=== PATIENT | female | born 1955 | race African-American/Black ===

== ENCOUNTER 2016-05-11 15:58 | Emergency (ER) | payer MEDICAID, OTHER ==
[~2016-05-11] VITALS: Ht 162.6 cm; Wt 63.5 kg
[~2016-05-11 15:58] MED LIST: ASPIRIN EC81 MG ORAL; ATARAX25 MG ORAL; AZITHROMYCIN250 MG ORAL; CARAFATE1 G1 ORAL; CEPHALEXIN500 MG PO; CLOTRIMAZOLE15 GM TOPIC; ELIMITE 5% CREA60 GM TOPIC; GLYBURIDE2.5 MG PO; HYDROCODON-ACE1 EA17 PO; IBUPROFEN600 MG ORAL; IBUPROFEN600 MG PO; IBUPROFEN800 MG ORAL; LEVAQUIN750 MG ORAL; LISINOPRIL10 MG ORAL; LISINOPRIL20 MG ORAL; LISINOPRIL5 MG ORAL; LOMOTIL TABLET1 EAC1 PO; LOPRESSOR1 MG/ML PO; LORATADINE10 M2 PO; MELOXICAM7.5 MG PO; METFORMIN HCL1000 M1 ORAL; METFORMIN HCL500 M1 ORAL; METOPROLOL SUCC25 MG ORAL; MYLANTA30 M1 PO; NASONEX17 GM NASAL; NITROSTAT0.4 M2 SL; NORCO 5-325 TA1 EACH ORAL; NORCO 5-325 TA1 EACH PO; NORCO1 EA ORAL; OMEPRAZOLE20 M2 ORAL; PERCOCET 5-3251 EACH ORAL; PLAVIX75 MG ORAL; PREDNISONE20 MG ORAL; SOMA350 MG PO; TAMIFLU75 MG ORAL; TRAZODONE HCL50 MG ORAL; VICODIN 5-5001 EACH PO
[2016-05-11 16:20] VITALS: BP 168/92
[2016-05-11] MEDS ORDERED: BACTRIM DS TAB1 EAC1 ORAL (16:47)
[2016-05-11] MEDS ORDERED: IBUPROFEN600 MG ORAL (16:47)
[2016-05-11 17:08] VITALS: BP 155/88
--- NOTE | 2016-05-11 17:52 | Emergency Room Report ---
History of Present Illness General Chief Complaint: Pain Source: Patient Present Illness HPI The patient is a 61-year-old female presenting with pain of the right thigh. The patient states that this pain began one month prior and is described as a 10 out of 10 dull ache. Pain is worse with sitting down. The patient denies any known injury. The patient denies radiating pain. Patient denies any other symptoms including fever, chills, nausea, vomiting, numbness or tingling, leg swelling, shortness of breath, chest pain Allergies: Coded Allergies: NO KNOWN DRUG ALLERGIES (Unverified Allergy, Unknown, 04/27/15) Patient History Past Medical History: see triage record Pertinent Family History: none Reviewed Nursing Documentation: PMH: Agreed, PSxH: Agreed Nursing Documentation-PMH Past Medical History: No History, Except For Hx Cardiac Problems: Yes Hx Hypertension: Yes Hx Pacemaker: No Hx Asthma: No Hx COPD: Yes Hx Diabetes: Yes Hx Cancer: No Hx Gastrointestinal Problems: Yes - Hepatitis C Hx Dialysis: Yes Hx Neurological Problems: No Hx Cerebrovascular Accident: No Hx Seizures: No Review of Systems All Other Systems: negative except mentioned in HPI Physical Exam Vital Signs Date Time Temp Pulse Resp B/P Pulse Ox O2 Delivery O2 Flow Rate FiO2 05/11/16 16:20 98.2 90 16 168/92 99 Room Air Sp02 EP Interpretation: reviewed, normal General Appearance: no apparent distress, alert, GCS 15, non-toxic Head: normocephalic, atraumatic Eyes: bilateral eye PERRL, bilateral eye normal inspection Musculoskeletal: back normal, gait/station normal, normal range of motion, no calf tenderness, tender - TTP over R posterior thigh Neurologic: alert, oriented x3, responsive, motor strength/tone normal, sensory intact, speech normal Psychiatric: judgement/insight normal, memory normal, mood/affect normal, no suicidal/homicidal ideation Skin: other - There is a 2cm indurated abscess to R posterior thigh. No drainage. No fluctuance. Lymphatic: no adenopathy Medical Decision Making PA Attestation Dr. Castanon is my supervising physician. Patient management was discussed with my supervising physician Diagnostic Impression: Primary Impression: Abscess of right leg ER Course The patient is a 61-year-old female presenting with pain of the right thigh Ddx considered include but not limited to insect bite, abscess, cellulitis, sprain/strain PE: NAD Normal gait. Full AROM of hip and knee. There is a 2cm indurated abscess to R posterior thigh. No drainage. No fluctuance. No surrounding erythema. No edema. The patient is advised abscess is not suitable for incision and drainage at this time. The patient will be discharged home with a prescription for keflex and tylenol. ER precautions given. Patient will return for incision and drainage when appropriate. Guidelines given Last Vital Signs Date Time Temp Pulse Resp B/P Pulse Ox O2 Delivery O2 Flow Rate FiO2 05/11/16 17:08 98.2 99 16 155/88 100 Room Air Status: improved Disposition: HOME, SELF-CARE Condition: Improved Scripts Ibuprofen* (MOTRIN*) 600 Mg Tablet 600 MG ORAL Q8H Y for For Pain, #30 TAB 0 Refills Prov: FLORESITA SALAS 05/11/16 Trimethoprim/Sulfamethoxazole 160/800* (BACTRIM DS TABLET*) 1 Each Tablet 1 TAB ORAL TWICE A DAY, #20 TAB Prov: FLORESITA SALAS 05/11/16 Referrals: [facility],REFERRING (PCP) Patient Instructions: Abscess Additional Instructions: I discussed my findings with the patient. All questions and concerns have been answered. Treatment and medication compliance have been addressed. I advised the patient that they need to follow up with PMD in 3-5 days. Return to ED if symptoms worsen, new symptoms arise, or if needed for any reason. Patient verbalized understanding of discharge instructions. FLORESITA SALAS May 11, 2016 17:52
== END 2016-05-11 17:08 | disposition home or self-care (01) ==
LOC: EMR 17:00
DX: L02.415 Cutaneous abscess of right lower limb (principal); I10 Essential (primary) hypertension; J44.9 Chronic obstructive pulmonary disease, unspecified; E11.9 Type 2 diabetes mellitus without complications; B19.20 Unspecified viral hepatitis C without hepatic coma
CPT/HCPCS: 99284

== ENCOUNTER 2016-06-28 08:28 | Emergency (ER) | payer OTHER ==
[~2016-06-28] VITALS: Ht 167.6 cm; Wt 66.2 kg
[~2016-06-28 08:28] MED LIST changes: +BACTRIM DS TAB1 EAC1 ORAL
[2016-06-28] MEDS ORDERED: Mylanta II UD 30ml ORAL ONE (09:00)
[2016-06-28] MEDS ORDERED: Dicyclomine HCl 10mg/5ml oral soln ORAL ONE (09:00)
[2016-06-28] MEDS ORDERED: Lidocaine 2% Visc 15ml soln ORAL ONE (09:00)
--- NOTE | 2016-06-28 09:00 | Emergency Room Report ---
History of Present Illness General Chief Complaint: Abdominal Pain Source: Patient Present Illness HPI Patient is a 61-year-old female presented after having increased epigastric pain. Patient had gradual onset of symptoms. Patient associated diarrhea. Patient denied having any fever. She had not been vomiting. She denied black or bloody stools. Patient prior history of similar abdominal pain. She had previously been on oral pain medications. She denied any chest pain. She recently been seen by gastroenterology. She states she currently hungry. She denied any had increased pain with ambulation. Pain was intermittent in nature and did not radiate. Allergies: Coded Allergies: NO KNOWN DRUG ALLERGIES (Unverified Allergy, Unknown, 04/27/15) Patient History Past Medical History: see triage record Reviewed Nursing Documentation: PMH: Agreed, PSxH: Agreed Nursing Documentation-PMH Past Medical History: No History, Except For Hx Cardiac Problems: Yes Hx Hypertension: Yes Hx Pacemaker: No Hx Asthma: No Hx COPD: Yes Hx Diabetes: Yes Hx Cancer: No Hx Gastrointestinal Problems: Yes - Hepatitis C Hx Dialysis: Yes Hx Neurological Problems: No Hx Cerebrovascular Accident: No Hx Seizures: No Review of Systems All Other Systems: negative except mentioned in HPI Physical Exam Vital Signs Date Time Temp Pulse Resp B/P Pulse Ox O2 Delivery O2 Flow Rate FiO2 06/28/16 08:32 98.1 87 16 173/88 98 Room Air Sp02 EP Interpretation: reviewed, normal General Appearance: normal inspection, well appearing, no apparent distress, alert, GCS 15 Head: atraumatic ENT: normal ENT inspection, hearing grossly normal, normal voice Neck: normal inspection, full range of motion, supple, no bony tend Respiratory: normal inspection, lungs clear, normal breath sounds, no respiratory distress, no retraction, no wheezing Cardiovascular #1: regular rate, rhythm, no edema Gastrointestinal: normal inspection, normal bowel sounds, non tender, soft, no guarding, no hernia Genitourinary: no CVA tenderness Musculoskeletal: normal inspection, back normal, normal range of motion Neurologic: normal inspection, alert, oriented x3, responsive, clin application specialist III-XII nml as tested, speech normal Psychiatric: normal inspection, judgement/insight normal, mood/affect normal Skin: normal inspection, normal color, no rash Medical Decision Making Diagnostic Impression: Primary Impression: Abdominal pain of unknown etiology ER Course Patient presented for abdominal pain. Differential diagnoses included ischemic bowel, appendicitis, perforated viscus, abdominal aortic aneurysm, inferior myocardial infarction, viral gastroenteritis. The patient was noted to have improvement abdominal pain after a GI cocktail. The patient appears to have a gastritis. The patient is advised to follow up with primary care doctor in 1-2 days. Patient is advised to return if any worsening condition or if any changes in status that are concerning. Labs Test 06/28/16 09:00 White Blood Count 6.8 K/UL (4.8-10.8) Red Blood Count 4.88 M/UL (4.20-5.40) Hemoglobin 15.0 G/DL (12.0-16.0) Hematocrit 44.1 % (37.0-47.0) Mean Corpuscular Volume 90 FL (80-99) Mean Corpuscular Hemoglobin 30.7 PG (27.0-31.0) Mean Corpuscular Hemoglobin Concent 33.9 G/DL (32.0-36.0) Red Cell Distribution Width 11.0 % (11.6-14.8) Platelet Count 105 K/UL (150-450) Mean Platelet Volume 8.0 FL (6.5-10.1) Neutrophils (%) (Auto) 52.4 % (45.0-75.0) Lymphocytes (%) (Auto) 34.3 % (20.0-45.0) Monocytes (%) (Auto) 9.5 % (1.0-10.0) Eosinophils (%) (Auto) 2.8 % (0.0-3.0) Basophils (%) (Auto) 1.0 % (0.0-2.0) Prothrombin Time 10.1 SEC (9.30-11.50) Prothromb Time International Ratio 1.0 (0.9-1.1) Activated Partial Thromboplast Time 24 SEC (23-33) Urine Color Pale yellow Urine Appearance Clear Urine pH 7 (4.5-8.0) Urine Specific [place] 1.010 (1.005-1.035) Urine Protein 1+ (NEGATIVE) Urine Glucose (UA) 4+ (NEGATIVE) Urine Ketones Negative (NEGATIVE) Urine Occult Blood Negative (NEGATIVE) Urine Nitrite Negative (NEGATIVE) Urine Bilirubin Negative (NEGATIVE) Urine Urobilinogen 1 MG/DL (0.0-1.0) Urine Leukocyte Esterase Negative (NEGATIVE) Urine RBC 0-2 /HPF (0 - 2) Urine WBC 0-2 /HPF (0 - 2) Urine Squamous Epithelial Cells Few /LPF (NONE/OCC) Urine Bacteria Few /HPF (NONE) Sodium Level 139 mEQ/L (135-145) Potassium Level 4.0 mEQ/L (3.4-4.9) Chloride Level 97 mEQ/L (98-107) Carbon Dioxide Level 25 mEQ/L (20-30) Anion Gap 17 (5-15) Blood Urea Nitrogen 12 mg/dL (7-23) Creatinine 0.7 mg/dL (0.5-0.9) Estimat Glomerular Filtration Rate > 60 mL/min (>60) Glucose Level 222 mg/dL (74-106) Calcium Level 10.3 mg/dL (8.6-10.2) Total Bilirubin 0.5 mg/dL (0.0-1.2) Aspartate Amino Transf (AST/SGOT) 38 U/L (5-40) Alanine Aminotransferase (ALT/SGPT) 39 U/L (3-33) Alkaline Phosphatase 110 U/L (35-104) Troponin I < 0.30 ng/mL (<=0.30) Total Protein 8.2 g/dL (6.6-8.7) Albumin 4.9 g/dL (3.5-5.2) Globulin 3.3 g/dL Albumin/Globulin Ratio 1.4 (1.0-2.7) Lipase 18 U/L (< 60) Last Vital Signs Date Time Temp Pulse Resp B/P Pulse Ox O2 Delivery O2 Flow Rate FiO2 06/28/16 08:32 98.1 87 16 173/88 98 Room Air Status: improved Disposition: HOME, SELF-CARE Condition: Stable Scripts Dicyclomine Hcl* (BENTYL*) 10 Mg Capsule 10 MG ORAL FOUR TIMES A DAY, #30 CAP Prov: Franklin Uriarte 06/28/16 Sucralfate* (CARAFATE*) 1 Gm Tablet 1 GM ORAL FOUR TIMES A DAY, #30 TAB Prov: Franklin Uriarte 06/28/16 Referrals: [facility],REFERRING (PCP) Franklin Uriarte Jun 28, 2016 09:00
[2016-06-28] MEDS ORDERED: CARAFATE1 G1 ORAL (09:08)
[2016-06-28] MEDS ORDERED: BENTYL10 MG ORAL ×2 (09:08→09:36)
[2016-06-28 09:26] LABS: APPEARANCE,URINE CLEAR; KETONES,URINE NEGATIVE (NEGATIVE); LEUKOCYTE ESTERASE ,URINE NEGATIVE (NEGATIVE); NITRITE,URINE NEGATIVE (NEGATIVE); PH,URINE 7 (4.5-8.0); PROTEIN,URINE 1+ (NEGATIVE); UROBILINOGEN,URINE 1 MG/DL (0.0-1.0)
[2016-06-28 09:27] LABS: EOSINOPHILS % (AUTO) 2.8 % (0.0-3.0); LYMPHOCYTES % (AUTO) 34.3 % (20.0-45.0); MEAN CORPUSCULAR HEMOGLOBIN 30.7 PG (27.0-31.0); MEAN CORPUSCULAR HGB CONC 33.9 G/DL (32.0-36.0); MEAN CORPUSCULAR VOLUME 90 FL (80-99); MONOCYTES % (AUTO) 9.5 % (1.0-10.0); NEUTROPHILS % (AUTO) 52.4 % (45.0-75.0); PLATELET COUNT 105 K/UL (150-450); RED BLOOD COUNT 4.88 M/UL (4.20-5.40); WHITE BLOOD COUNT 6.8 K/UL (4.8-10.8)
[2016-06-28 09:36] LABS: PROTHROMBIN TIME 10.1 SEC (9.30-11.50)
[2016-06-28 09:40] LABS: BACTERIA,URINE FEW /HPF; RBC,URINE 0-2 /HPF (0 - 2); SQUAMOUS EPITHELIAL CELL,UR FEW /LPF (NONE/OCC); TROPONIN I < 0.30 ng/mL (<=0.30); WBC,URINE 0-2 /HPF (0 - 2)
[2016-06-28 09:42] LABS: ALANINE AMINOTRANSFERASE 39 U/L (3-33); ALBUMIN/GLOBULIN RATIO 1.4 (1.0-2.7); ANION GAP 17 (5-15); ASPARTATE AMINO TRANSFERASE 38 U/L (5-40); CALCIUM 10.3 mg/dL (8.6-10.2); CARBON DIOXIDE 25 mEQ/L (20-30); CHLORIDE 97 mEQ/L (98-107); CREATININE 0.7 mg/dL (0.5-0.9); GLOMERULAR FILTRATION RATE > 60 mL/min (>60); HEMOLYSIS 33; LIPASE 18 U/L (< 60); SODIUM 139 mEQ/L (135-145); TOTAL PROTEIN 8.2 g/dL (6.6-8.7)
[2016-06-28 09:47] VITALS: BP 171/97
[2016-06-28 10:02] VITALS: BP 145/85
[2016-06-28 10:03] VITALS: BP 145/85
== END 2016-06-28 10:06 | disposition home or self-care (01) ==
LOC: EMR 08:54
DX: R10.9 Unspecified abdominal pain (principal); R19.7 Diarrhea, unspecified; I10 Essential (primary) hypertension; J44.9 Chronic obstructive pulmonary disease, unspecified; E11.9 Type 2 diabetes mellitus without complications
CPT/HCPCS: 36415; 80053; 81003; 83690; 84484; 85025; 85610; 85730; 99284

== ENCOUNTER 2016-07-08 11:01 | Emergency (ER) | payer OTHER ==
[~2016-07-08] VITALS: Ht 167.6 cm; Wt 66.2 kg
[~2016-07-08 11:01] MED LIST changes: +BENTYL10 MG ORAL
[2016-07-08] MEDS ORDERED: Famotidine 20 MG/ 2ML VIAL IVP ONE (11:15)
[2016-07-08 11:38] LABS: APPEARANCE,URINE CLEAR; KETONES,URINE NEGATIVE (NEGATIVE); LEUKOCYTE ESTERASE ,URINE NEGATIVE (NEGATIVE); NITRITE,URINE NEGATIVE (NEGATIVE); PH,URINE 8 (4.5-8.0); PROTEIN,URINE NEGATIVE (NEGATIVE); UROBILINOGEN,URINE NORMAL MG/DL (0.0-1.0)
[2016-07-08 11:43] LABS: BASOPHILS % (AUTO) 0.8 % (0.0-2.0); EOSINOPHILS % (AUTO) 0.7 % (0.0-3.0); LYMPHOCYTES % (AUTO) 27.3 % (20.0-45.0); MEAN CORPUSCULAR HGB CONC 32.1 G/DL (32.0-36.0); MEAN CORPUSCULAR VOLUME 93 FL (80-99); MEAN PLATELET VOLUME 6.7 FL (6.5-10.1); MONOCYTES % (AUTO) 7.1 % (1.0-10.0); NEUTROPHILS % (AUTO) 64.1 % (45.0-75.0); PLATELET COUNT 131 K/UL (150-450); RED BLOOD COUNT 4.82 M/UL (4.20-5.40); RED CELL DISTRIBUTION WIDTH 11.5 % (11.6-14.8)
[2016-07-08 11:50] LABS: ALANINE AMINOTRANSFERASE 27 U/L (3-33); ALBUMIN/GLOBULIN RATIO 1.2 (1.0-2.7); ANION GAP 17 (5-15); ASPARTATE AMINO TRANSFERASE 22 U/L (5-40); CALCIUM 10.3 mg/dL (8.6-10.2); CARBON DIOXIDE 27 mEQ/L (20-30); CHLORIDE 91 mEQ/L (98-107); CREATININE 0.7 mg/dL (0.5-0.9); GLOMERULAR FILTRATION RATE > 60 mL/min (>60); HEMOLYSIS 11; LIPASE 13 U/L (< 60); POTASSIUM 3.9 mEQ/L (3.4-4.9); SODIUM 135 mEQ/L (135-145); TOTAL PROTEIN 8.4 g/dL (6.6-8.7)
[2016-07-08 11:51] LABS: TROPONIN I < 0.30 ng/mL (<=0.30)
[2016-07-08] MEDS ORDERED: LORAZEPAM2 MG/1 M4 ORAL (12:23)
[2016-07-08 12:31] VITALS: BP 174/74
[2016-07-08] MEDS ORDERED: BENTYL10 MG ORAL (12:35)
[2016-07-08] MEDS ORDERED: RANITIDINE HCL150 MG ORAL (12:35)
[2016-07-08 12:51] VITALS: BP 169/68
[2016-07-08 12:55] VITALS: BP 174/74
--- NOTE | 2016-07-08 15:01 | Emergency Room Report ---
History of Present Illness General Chief Complaint: Abdominal Pain Source: Patient Present Illness HPI 61-year-old female presents to ED for evaluation. Notes abdominal pain vomiting diarrhea x1 day. Pain is epigastric, 10, sharp. Nonradiating. Notes multiple episodes of vomiting. Denies chest pain or shortness of breath. Denies fevers and chills. Denies sick contacts. No other aggravating or relieving factors. Denies any other associated symptoms Allergies: Coded Allergies: NO KNOWN DRUG ALLERGIES (Unverified Allergy, Unknown, 04/27/15) Patient History Past Medical History: DM, HTN, COPD, renal disease, dialysis Past Surgical History: none Pertinent Family History: none Social History: Denies: alcohol use, drug use, smoking Now: No Immunizations: UTD Reviewed Nursing Documentation: PMH: Agreed, PSxH: Agreed Nursing Documentation-PMH Hx Cardiac Problems: Yes Hx Hypertension: Yes Hx Pacemaker: No Hx Asthma: No Hx COPD: Yes Hx Diabetes: Yes Hx Cancer: No Hx Gastrointestinal Problems: Yes - Hepatitis C Hx Dialysis: Yes Hx Neurological Problems: No Hx Cerebrovascular Accident: No Hx Seizures: No Review of Systems All Other Systems: negative except mentioned in HPI Physical Exam Vital Signs Date Time Temp Pulse Resp B/P Pulse Ox O2 Delivery O2 Flow Rate FiO2 07/08/16 10:56 100.4 66 18 196/78 98 Room Air Sp02 EP Interpretation: reviewed, normal General Appearance: no apparent distress, alert, GCS 15, non-toxic Head: normocephalic, atraumatic Eyes: bilateral eye PERRL, bilateral eye normal inspection ENT: hearing grossly normal, normal pharynx, no angioedema, normal voice Neck: full range of motion, supple/symm/no masses Respiratory: chest non-tender, lungs clear, normal breath sounds, speaking full sentences Cardiovascular #1: regular rate, rhythm, no edema Cardiovascular #2: 2+ carotid (R), 2+ carotid (L), 2+ radial (R), 2+ radial (L) , 2+ dorsalis pedis (R), 2+ dorsalis pedis (L) Gastrointestinal: normal bowel sounds, soft, non-distended, no guarding, no rebound Rectal: deferred Genitourinary: normal inspection, no CVA tenderness Musculoskeletal: back normal, gait/station normal, normal range of motion, non- tender Neurologic: alert, oriented x3, responsive, motor strength/tone normal, sensory intact, speech normal Psychiatric: judgement/insight normal, memory normal, mood/affect normal, no suicidal/homicidal ideation Reflexes: 3+ bicep (R), 3+ bicep (L), 3+ tricep (R), 3+ tricep (L), 3+ knee (R) , 3+ knee (L) Skin: normal color, no rash, warm/dry, well hydrated Lymphatic: no adenopathy Medical Decision Making Diagnostic Impression: Primary Impression: Gastroenteritis ER Course Hospital Course 61-year-old F presents to ED with cramping abdominal pain with vomiting, diarrhea differential diagnosis: gastritis, SBO, cholecystits, gastroenteritis Clinical course Patient placed on stretcher. On monitor tech. After initial history and physical I ordered labs, IV fluids, Zofran and Zantac Labs - no leukocytosis, electrolytes ok, LFTs normal, UA unremarkable Upon reassessment, patient states pain has improved. findings consistent with gastroenteritis I feel this is a highly complex case requiring extensive working including EKG/ Rhythm strip, Xray/CT/US, Blood/urine lab work, repeat exams while in ED, and administration of strong opiates/narcotics for pain control, admission to hospital or close patient follow up. Diagnosis - gastroenteritis Stable and discharged to home with prescriptions for Zantac, zofran. Followup with PMD. Return to ED if symptoms recur or worsen Labs Test 07/08/16 11:05 07/08/16 11:15 Urine Color Pale yellow Urine Appearance Clear Urine pH 8 (4.5-8.0) Urine Specific [place] 1.010 (1.005-1.035) Urine Protein Negative (NEGATIVE) Urine Glucose (UA) 3+ (NEGATIVE) Urine Ketones Negative (NEGATIVE) Urine Occult Blood Negative (NEGATIVE) Urine Nitrite Negative (NEGATIVE) Urine Bilirubin Negative (NEGATIVE) Urine Urobilinogen Normal MG/DL (0.0-1.0) Urine Leukocyte Esterase Negative (NEGATIVE) White Blood Count 9.0 K/UL (4.8-10.8) Red Blood Count 4.82 M/UL (4.20-5.40) Hemoglobin 14.5 G/DL (12.0-16.0) Hematocrit 45.0 % (37.0-47.0) Mean Corpuscular Volume 93 FL (80-99) Mean Corpuscular Hemoglobin 30.0 PG (27.0-31.0) Mean Corpuscular Hemoglobin Concent 32.1 G/DL (32.0-36.0) Red Cell Distribution Width 11.5 % (11.6-14.8) Platelet Count 131 K/UL (150-450) Mean Platelet Volume 6.7 FL (6.5-10.1) Neutrophils (%) (Auto) 64.1 % (45.0-75.0) Lymphocytes (%) (Auto) 27.3 % (20.0-45.0) Monocytes (%) (Auto) 7.1 % (1.0-10.0) Eosinophils (%) (Auto) 0.7 % (0.0-3.0) Basophils (%) (Auto) 0.8 % (0.0-2.0) Sodium Level 135 mEQ/L (135-145) Potassium Level 3.9 mEQ/L (3.4-4.9) Chloride Level 91 mEQ/L (98-107) Carbon Dioxide Level 27 mEQ/L (20-30) Anion Gap 17 (5-15) Blood Urea Nitrogen 6 mg/dL (7-23) Creatinine 0.7 mg/dL (0.5-0.9) Estimat Glomerular Filtration Rate > 60 mL/min (>60) Glucose Level 190 mg/dL (74-106) Calcium Level 10.3 mg/dL (8.6-10.2) Total Bilirubin 0.5 mg/dL (0.0-1.2) Aspartate Amino Transf (AST/SGOT) 22 U/L (5-40) Alanine Aminotransferase (ALT/SGPT) 27 U/L (3-33) Alkaline Phosphatase 112 U/L (35-104) Troponin I < 0.30 ng/mL (<=0.30) Total Protein 8.4 g/dL (6.6-8.7) Albumin 4.6 g/dL (3.5-5.2) Globulin 3.8 g/dL Albumin/Globulin Ratio 1.2 (1.0-2.7) Lipase 13 U/L (< 60) Last Vital Signs Date Time Temp Pulse Resp B/P Pulse Ox O2 Delivery O2 Flow Rate FiO2 07/08/16 12:55 100.4 70 18 174/74 98 Room Air Status: improved Disposition: HOME, SELF-CARE Condition: Stable Scripts Dicyclomine Hcl* (BENTYL*) 10 Mg Capsule 10 MG ORAL FOUR TIMES A DAY, #20 CAP Prov: MARKY PHELPS M.D. 07/08/16 Ranitidine Hcl* (ZANTAC*) 150 Mg Tablet 150 MG ORAL TWICE A DAY, #30 TAB Prov: MARKY PHELPS M.D. 07/08/16 Patient Instructions: Viral Gastroenteritis, Adult, [id number] MARKY PHELPS M.D. Jul 08, 2016 15:01
== END 2016-07-08 12:57 | disposition home or self-care (01) ==
LOC: EDBD 11:01 → EMR 11:17
DX: K52.9 Noninfective gastroenteritis and colitis, unspecified (principal); I12.9 Hypertensive chronic kidney disease with stage 1 through stage 4 chronic kidney disease, or unspecified chronic kidney disease; E11.22 Type 2 diabetes mellitus with diabetic chronic kidney disease; N18.9 Chronic kidney disease, unspecified; Z99.2 Dependence on renal dialysis; J44.9 Chronic obstructive pulmonary disease, unspecified; Z86.19 Personal history of other infectious and parasitic diseases
CPT/HCPCS: 36415; 80053; 81003; 83690; 84484; 85025; 96360; 96374; 96375; 99284; J2405; S0028

== ENCOUNTER 2016-07-30 17:22 | Emergency (ER) | payer OTHER ==
[~2016-07-30] VITALS: Ht 167.6 cm; Wt 68.0 kg
[~2016-07-30 17:22] MED LIST changes: +LORAZEPAM2 MG/1 M4 ORAL; +RANITIDINE HCL150 MG ORAL
[2016-07-30 17:25] VITALS: BP 153/74
[2016-07-30 18:08] LABS: BASOPHILS % (AUTO) 1.5 % (0.0-2.0); EOSINOPHILS % (AUTO) 0.5 % (0.0-3.0); MEAN CORPUSCULAR HEMOGLOBIN 32.2 PG (27.0-31.0); MEAN CORPUSCULAR HGB CONC 35.1 G/DL (32.0-36.0); MEAN CORPUSCULAR VOLUME 92 FL (80-99); MEAN PLATELET VOLUME 5.7 FL (6.5-10.1); MONOCYTES % (AUTO) 10.1 % (1.0-10.0); PLATELET COUNT 157 K/UL (150-450); RED BLOOD COUNT 5.37 M/UL (4.20-5.40); RED CELL DISTRIBUTION WIDTH 12.3 % (11.6-14.8); WHITE BLOOD COUNT 10.8 K/UL (4.8-10.8)
[2016-07-30 18:28] LABS: TROPONIN I < 0.30 ng/mL (<=0.30)
[2016-07-30 18:29] LABS: ALBUMIN/GLOBULIN RATIO 1.1 (1.0-2.7); CALCIUM 10.3 mg/dL (8.6-10.2); CREATININE 1.4 mg/dL (0.5-0.9); GLOMERULAR FILTRATION RATE 46.2 mL/min (>60); TOTAL PROTEIN 8.7 g/dL (6.6-8.7)
[2016-07-30 18:30] LABS: POTASSIUM 4.6 mEQ/L (3.4-4.9)
[2016-07-30 19:36] VITALS: BP 148/71
[2016-07-30] MEDS ORDERED: ZOFRAN ODT4 MG ORAL (19:40)
[2016-07-30] MEDS ORDERED: RANITIDINE HCL150 MG ORAL (19:40)
[2016-07-30 19:57] VITALS: BP 148/71
--- NOTE | 2016-07-30 20:49 | Emergency Room Report ---
History of Present Illness General Chief Complaint: Abdominal Pain Source: EMS Present Illness HPI 61-year-old female presents to ED for evaluation. Patient states she was at a fast food restaurant today and ate some baked chicken. Patient states shortly after eating she felt sharp abdominal pain and vomiting. States she felt dizzy. Pain is epigastric, sharp, 8/10. Nonradiating. No other aggravating relieving factors. Denies chest pain or shortness of breath. Denies fevers or chills. No other aggravating or leading factors. Denies any other associated symptoms Allergies: Coded Allergies: NO KNOWN DRUG ALLERGIES (Unverified Allergy, Unknown, 04/27/15) Patient History Past Medical History: DM, HTN, COPD, GERD Past Surgical History: none Pertinent Family History: none Social History: Denies: alcohol use, drug use, smoking Now: No Immunizations: UTD Reviewed Nursing Documentation: PMH: Agreed, PSxH: Agreed Nursing Documentation-PMH Past Medical History: No History, Except For Hx Cardiac Problems: Yes Hx Hypertension: Yes Hx Pacemaker: No Hx Asthma: No Hx COPD: Yes Hx Diabetes: Yes Hx Cancer: No Hx Gastrointestinal Problems: Yes - Hepatitis C Hx Dialysis: Yes Hx Neurological Problems: No Hx Cerebrovascular Accident: No Hx Seizures: No Review of Systems All Other Systems: negative except mentioned in HPI Physical Exam Vital Signs Date Time Temp Pulse Resp B/P Pulse Ox O2 Delivery O2 Flow Rate FiO2 07/30/16 17:13 98.1 88 16 150/96 99 Room Air Sp02 EP Interpretation: reviewed, normal General Appearance: no apparent distress, alert, GCS 15, non-toxic Head: normocephalic, atraumatic Eyes: bilateral eye PERRL, bilateral eye normal inspection ENT: hearing grossly normal, normal pharynx, no angioedema, normal voice Neck: full range of motion, supple/symm/no masses Respiratory: chest non-tender, lungs clear, normal breath sounds, speaking full sentences Cardiovascular #1: regular rate, rhythm, no edema Cardiovascular #2: 2+ carotid (R), 2+ carotid (L), 2+ radial (R), 2+ radial (L) , 2+ dorsalis pedis (R), 2+ dorsalis pedis (L) Gastrointestinal: normal bowel sounds, non tender, soft, non-distended, no guarding, no rebound Rectal: deferred Genitourinary: normal inspection, no CVA tenderness Musculoskeletal: back normal, gait/station normal, normal range of motion, non- tender Neurologic: alert, oriented x3, responsive, motor strength/tone normal, sensory intact, speech normal Psychiatric: judgement/insight normal, memory normal, mood/affect normal, no suicidal/homicidal ideation Reflexes: 3+ bicep (R), 3+ bicep (L), 3+ tricep (R), 3+ tricep (L), 3+ knee (R) , 3+ knee (L) Skin: normal color, no rash, warm/dry, well hydrated Lymphatic: no adenopathy Medical Decision Making Diagnostic Impression: Primary Impression: Gastritis Qualified Codes: K29.00 - Acute gastritis without bleeding ER Course Hospital Course 61-year-old F presents to ED with epigastric pain with N/V, dizziness differential diagnosis: gastritis, SBO, cholecystits Clinical course Patient placed on stretcher. On ekg monitor. After initial history and physical I ordered labs, IV fluids, EKG, Zofran Labs - no leukocytosis, Glucose > 212, LFTs normal, UA unremarkable EKG - NSR, no acute changes Upon reassessment, patient states pain has improved. findings consistent with gastritis I feel this is a highly complex case requiring extensive working including EKG/ Rhythm strip, Xray/CT/US, Blood/urine lab work, repeat exams while in ED, and administration of strong opiates/narcotics for pain control, admission to hospital or close patient follow up. Diagnosis - gastritis Stable and discharged to home with prescriptions for Zantac, zofran. Followup with PMD. Return to ED if symptoms recur or worsen Labs Test 07/30/16 17:52 White Blood Count 10.8 K/UL (4.8-10.8) Red Blood Count 5.37 M/UL (4.20-5.40) Hemoglobin 17.3 G/DL (12.0-16.0) Hematocrit 49.1 % (37.0-47.0) Mean Corpuscular Volume 92 FL (80-99) Mean Corpuscular Hemoglobin 32.2 PG (27.0-31.0) Mean Corpuscular Hemoglobin Concent 35.1 G/DL (32.0-36.0) Red Cell Distribution Width 12.3 % (11.6-14.8) Platelet Count 157 K/UL (150-450) Mean Platelet Volume 5.7 FL (6.5-10.1) Neutrophils (%) (Auto) 59.0 % (45.0-75.0) Lymphocytes (%) (Auto) 29.0 % (20.0-45.0) Monocytes (%) (Auto) 10.1 % (1.0-10.0) Eosinophils (%) (Auto) 0.5 % (0.0-3.0) Basophils (%) (Auto) 1.5 % (0.0-2.0) Sodium Level 138 mEQ/L (135-145) Potassium Level 4.6 mEQ/L (3.4-4.9) Chloride Level 97 mEQ/L (98-107) Carbon Dioxide Level 20 mEQ/L (20-30) Anion Gap 21 (5-15) Blood Urea Nitrogen 19 mg/dL (7-23) Creatinine 1.4 mg/dL (0.5-0.9) Estimat Glomerular Filtration Rate 46.2 mL/min (>60) Glucose Level 212 mg/dL (74-106) Calcium Level 10.3 mg/dL (8.6-10.2) Total Bilirubin 0.7 mg/dL (0.0-1.2) Aspartate Amino Transf (AST/SGOT) 36 U/L (5-40) Alanine Aminotransferase (ALT/SGPT) 32 U/L (3-33) Alkaline Phosphatase 115 U/L (35-104) Troponin I < 0.30 ng/mL (<=0.30) Total Protein 8.7 g/dL (6.6-8.7) Albumin 4.6 g/dL (3.5-5.2) Globulin 4.1 g/dL Albumin/Globulin Ratio 1.1 (1.0-2.7) Lipase 19 U/L (< 60) EKG Diagnostic Results Rate: normal Rhythm: NSR ST Segments: no acute changes ASA given to the pt in ED: No Rhythm Strip Diag. Results EP Interpretation: yes Rhythm: NSR, no PVC's, no ectopy Last Vital Signs Date Time Temp Pulse Resp B/P Pulse Ox O2 Delivery O2 Flow Rate FiO2 07/30/16 19:57 98.2 61 14 148/71 100 Room Air Status: improved Disposition: HOME, SELF-CARE Condition: Stable Scripts Ondansetron Odt* (ZOFRAN ODT*) 4 Mg Tab.rapdis 4 MG ORAL Q6H Y for Nausea & Vomiting, #30 TAB 0 Refills Prov: MARKY PHELPS M.D. 07/30/16 Ranitidine Hcl* (ZANTAC*) 150 Mg Tablet 150 MG ORAL TWICE A DAY, #30 TAB Prov: MARKY PHELPS M.D. 07/30/16 Referrals: [facility],REFERRING (PCP) Patient Instructions: Gastritis, Adult, [id number] MARKY PHELPS M.D. Jul 30, 2016 20:49
--- NOTE | 2016-07-31 16:36 | Cardiology Report ---
APPROVED REPORT EKG Measurement Heart [id number] ID [id number] Normal sinus rhythm Normal ECG
== END 2016-07-30 19:58 | disposition home or self-care (01) ==
LOC: EDBD 17:22 → EMR 18:37
DX: K29.70 Gastritis, unspecified, without bleeding (principal); E11.9 Type 2 diabetes mellitus without complications; I10 Essential (primary) hypertension; J44.9 Chronic obstructive pulmonary disease, unspecified; B19.20 Unspecified viral hepatitis C without hepatic coma; K21.9 Gastro-esophageal reflux disease without esophagitis
CPT/HCPCS: 36415; 80053; 82962; 83690; 84484; 85025; 93005; 96374; 96375; 99284; J2405

== ENCOUNTER 2016-09-28 20:58 | Emergency (ER) | payer OTHER ==
[~2016-09-28] VITALS: Ht 167.6 cm; Wt 67.6 kg
[~2016-09-28 20:58] MED LIST changes: +ZOFRAN ODT4 MG ORAL
[2016-09-28 21:23] VITALS: BP 152/89
[2016-09-28] MEDS ORDERED: BENTYL10 MG ORAL (21:34)
--- NOTE | 2016-09-28 21:36 | Emergency Room Report ---
History of Present Illness General Chief Complaint: Abdominal Pain Source: Patient, Medical Record Present Illness HPI Is a 61-year-old female with no cerebrovascular issue. She has a long-standing history of recurrent abdominal pain. She has multiple CT scan done already. She also had a colonoscopy done last month and was normal. Denies any fever chills denies any nausea vomiting. No diarrhea. She presents with right mid abdominal pain started yesterday. No fever chills but no nausea no vomiting. No diarrhea. Pain is crampy in nature. No fever. Allergies: Coded Allergies: NO KNOWN DRUG ALLERGIES (Unverified Allergy, Unknown, 04/27/15) Patient History Past Medical History: see triage record, old chart reviewed Past Surgical History: other Pertinent Family History: none Social History: Denies: smoking Now: No Immunizations: other Reviewed Nursing Documentation: PMH: Agreed, PSxH: Agreed Nursing Documentation-PMH Hx Cardiac Problems: Yes Hx Hypertension: Yes Hx Pacemaker: No Hx Asthma: No Hx COPD: Yes Hx Diabetes: Yes Hx Cancer: No Hx Gastrointestinal Problems: Yes - Hepatitis C Hx Dialysis: Yes Hx Neurological Problems: No Hx Cerebrovascular Accident: No Hx Seizures: No Review of Systems Eye: Denies: blurred vision, eye pain ENT: Denies: ear pain, nose congestion, throat swelling Respiratory: Denies: cough, shortness of breath Cardiovascular: Denies: chest pain, palpitations Gastrointestinal: Reports: abdominal pain, Denies: diarrhea, nausea, vomiting Musculoskeletal: Denies: back pain, joint pain Skin: Denies: rash Neurological: Denies: headache, numbness Endocrine: Denies: increased thirst, increased urine Hematologic/Lymphatic: Denies: easy bruising All Other Systems: negative except mentioned in HPI Physical Exam Vital Signs Date Time Temp Pulse Resp B/P Pulse Ox O2 Delivery O2 Flow Rate FiO2 09/28/16 21:13 98.2 90 16 152/89 98 Room Air vitals with hypertension Sp02 EP Interpretation: reviewed, normal General Appearance: well appearing, no apparent distress, alert Head: normocephalic, atraumatic Eyes: bilateral eye EOMI, bilateral eye PERRL ENT: hearing grossly normal, normal pharynx Neck: full range of motion, supple, no meningismus Respiratory: chest non-tender, lungs clear, normal breath sounds Cardiovascular #1: regular rate, rhythm, no murmur Gastrointestinal: normal bowel sounds, non tender, no mass, no organomegaly, no bruit, non-distended Musculoskeletal: back normal, gait/station normal, normal range of motion Psychiatric: mood/affect normal Skin: warm/dry Medical Decision Making Diagnostic Impression: Primary Impression: Abdominal pain of unknown etiology Additional Impression: Opioid dependence Qualified Codes: F11.20 - Opioid dependence, uncomplicated ER Course Issue with abdominal pain. I suspect may be an opioid dependence. Abdominal exam is completely benign. Is no pain as I listen to palpate with my stethoscope. I see no need for further workup since she already has a colonoscopy and previous CTs here. On the [facility] system, she has multiple prescription for opioid use and Xanax. Last Vital Signs Date Time Temp Pulse Resp B/P Pulse Ox O2 Delivery O2 Flow Rate FiO2 09/28/16 21:13 98.2 90 16 152/89 98 Room Air Status: unchanged Disposition: HOME, SELF-CARE Condition: Stable Scripts Dicyclomine Hcl* (BENTYL*) 10 Mg Capsule 10 MG ORAL FOUR TIMES A DAY, #30 CAP Prov: LORNA REDMAN M.D. 09/28/16 Patient Instructions: Abdominal Pain, Adult Additional Instructions: Followup with your Dr. in 2-3 days. Return if symptom worsen. LORNA REDMAN M.D. Sep 28, 2016 21:36
[2016-09-28 21:46] VITALS: BP 152/89
== END 2016-09-28 21:46 | disposition home or self-care (01) ==
LOC: EMR 21:18
DX: R10.9 Unspecified abdominal pain (principal); F11.20 Opioid dependence, uncomplicated; I10 Essential (primary) hypertension; E11.9 Type 2 diabetes mellitus without complications; J44.9 Chronic obstructive pulmonary disease, unspecified; B19.20 Unspecified viral hepatitis C without hepatic coma
CPT/HCPCS: 99283

== ENCOUNTER 2017-05-05 19:51 | Emergency (ER) | payer OTHER ==
[~2017-05-05] VITALS: Ht 167.6 cm; Wt 59.0 kg
[2017-05-05] MEDS ORDERED: Ketorolac 30mg Inj IV ONE (20:00)
[2017-05-05 20:40] VITALS: BP 124/73
[2017-05-05 20:57] LABS: BASOPHILS % (AUTO) 1.1 % (0.0-2.0); EOSINOPHILS % (AUTO) 3.3 % (0.0-3.0); HEMATOCRIT 40.8 % (37.0-47.0); HEMOGLOBIN 14.3 G/DL (12.0-16.0); LYMPHOCYTES % (AUTO) 21.2 % (20.0-45.0); MEAN CORPUSCULAR VOLUME 94 FL (80-99); MONOCYTES % (AUTO) 10.3 % (1.0-10.0); NEUTROPHILS % (AUTO) 64.1 % (45.0-75.0); PLATELET COUNT 169 K/UL (150-450); RED BLOOD COUNT 4.33 M/UL (4.20-5.40); RED CELL DISTRIBUTION WIDTH 10.8 % (11.6-14.8); WHITE BLOOD COUNT 12.1 K/UL (4.8-10.8)
[2017-05-05 21:09] LABS: ANION GAP 13 mmol/L (5-15); BLOOD UREA NITROGEN 26 mg/dL (7-18); CALCIUM 9.8 MG/DL (8.5-10.1); CARBON DIOXIDE 23 MMOL/L (21-32); CHLORIDE 99 MMOL/L (98-107); CREATININE 1.6 MG/DL (0.55-1.30); POTASSIUM 3.3 MMOL/L (3.5-5.1); SODIUM 135 MMOL/L (136-145)
[2017-05-05 21:15] LABS: ALANINE AMINOTRANSFERASE 37 U/L (12-78); ALBUMIN 4.2 G/DL (3.4-5.0); ALBUMIN/GLOBULIN RATIO 0.9 (1.0-2.7); ALKALINE PHOSPHATASE 122 U/L (46-116); ASPARTATE AMINO TRANSFERASE 21 U/L (15-37); BILIRUBIN,TOTAL 0.5 MG/DL (0.2-1.0)
[2017-05-05 22:56] LABS: APPEARANCE,URINE CLEAR; BILIRUBIN, URINE NEGATIVE (NEGATIVE); COLOR,URINE PALE YELLOW; GLUCOSE, URINE (UA) NEGATIVE (NEGATIVE); KETONES,URINE NEGATIVE (NEGATIVE); LEUKOCYTE ESTERASE ,URINE 3+ (NEGATIVE); NITRITE,URINE NEGATIVE (NEGATIVE); PH,URINE 5 (4.5-8.0); PROTEIN,URINE NEGATIVE (NEGATIVE); UROBILINOGEN,URINE NORMAL MG/DL (0.0-1.0)
--- NOTE | 2017-05-05 23:17 | Emergency Room Report ---
History of Present Illness General Chief Complaint: Abdominal Pain Source: Patient, EMS Present Illness HPI Patient presents with abdominal pain starting on for 2 days. She states it is fairly constant right now the right lower quadrant. Pain rated 10/10, more diffuse, constant and crampy. Has had diarrhea which has been brown without any blood. Peptobismol taken without help. States no recent antibiotics. Denies fevers. Seen at [facility] 1 week ago, "nothing was done". When seen here last September, felt to be related to opiate dependence (cures with ativan and opiates). Has been seen here for abdominal pain several times last year. No specific diagnosis. Had CT done Apr 2015: Findings: The liver and spleen are unremarkable. The lung bases show minimal atelectasis. The pancreatic duct is slightly prominent. Moderate calcification of the aorta demonstrated. Suspected tiny nonobstructive stone within the left kidney. No adrenal mass seen. Gallbladder is unremarkable. There is apparent thickening of the wall of the colon especially in the right hemicolon. Findings could be due to colitis. Please correlate clinically. There is no abscess. There is no evidence of appendicitis. Uterus is present. Urinary bladder is unremarkable. Vacuum phenomena and narrowing L4-5 disc noted. Impression: Suspected colitis. Please correlate clinically. Enteritis may be present as well with some very mild fluid-filled distended small bowel loops. Punctate calcification likely a tiny nonobstructive stone in the left kidney. Atherosclerotic vascular disease Minimal basilar atelectasis Degenerative disc disease at L4-5. Denies chest pain, dyspnea, cough, extremity pain, headache, weakness, dizziness , polies. Allergies: Coded Allergies: NO KNOWN DRUG ALLERGIES (Unverified Allergy, Unknown, 04/27/15) Patient History Past Medical History: see triage record Social History: Denies: smoking Social History Narrative at home Last Menstrual Period: NA Now: No Reviewed Nursing Documentation: PMH: Agreed, PSxH: Agreed Nursing Documentation-PMH Hx Cardiac Problems: Yes Hx Hypertension: Yes Hx Pacemaker: No Hx Asthma: No Hx COPD: Yes Hx Diabetes: Yes Hx Cancer: No Hx Gastrointestinal Problems: Yes - Hepatitis C Hx Dialysis: Yes Hx Neurological Problems: No Hx Cerebrovascular Accident: No Hx Seizures: No Review of Systems All Other Systems: negative except mentioned in HPI Physical Exam Vital Signs Date Time Temp Pulse Resp B/P (MAP) Pulse Ox O2 Delivery O2 Flow Rate FiO2 05/05/17 19:53 97.7 90 18 123/68 98 Room Air Sp02 EP Interpretation: reviewed, normal General Appearance: well appearing, no apparent distress, GCS 15 Head: normocephalic Eyes: bilateral eye normal inspection, bilateral eye PERRL ENT: moist mucus membranes - Pepto on mouth Neck: supple Respiratory: lungs clear, normal breath sounds Cardiovascular #1: regular rate, rhythm Cardiovascular #2: 2+ radial (R) Gastrointestinal: normal inspection, normal bowel sounds, no mass, non- distended, no guarding, no rebound, tenderness - generalized Musculoskeletal: back normal, gait/station normal, normal range of motion Neurologic: alert, oriented x3, grossly normal Psychiatric: depressed affect Skin: normal inspection, warm/dry Medical Decision Making Diagnostic Impression: Primary Impression: Abdominal pain Qualified Codes: R10.84 - Generalized abdominal pain Additional Impressions: Diarrhea Qualified Codes: R19.7 - Diarrhea, unspecified Diabetes Qualified Codes: E11.8 - Type 2 diabetes mellitus with unspecified complications Renal insufficiency ER Course Patient presents with 2 days of abdominal pain and diarrhea. DDx: GItis, colitis, UTI, opiate withdrawal, diverticulitis amongst others. Not surgical abdomen at this time. Needs evaluation with Abd x-rays, labs, UA. Treatment with IV hydration, pepcid and analgesics. Labs with sl elevated WBC without L shift, sl low H/H, no pyuria. Renal insufficiency (new). abd films, no sig pathology Patient improved. Discussed renal function. Tolerating PO well. Patient stable for outpatient observation and treatment. Laboratory Tests Test 05/05/17 20:30 05/05/17 20:33 White Blood Count 12.1 K/UL (4.8-10.8) H Red Blood Count 4.33 M/UL (4.20-5.40) Hemoglobin 14.3 G/DL (12.0-16.0) Hematocrit 40.8 % (37.0-47.0) Mean Corpuscular Volume 94 FL (80-99) Mean Corpuscular Hemoglobin 33.1 PG (27.0-31.0) H Mean Corpuscular Hemoglobin Concent 35.0 G/DL (32.0-36.0) Red Cell Distribution Width 10.8 % (11.6-14.8) L Platelet Count 169 K/UL (150-450) Mean Platelet Volume 6.4 FL (6.5-10.1) L Neutrophils (%) (Auto) 64.1 % (45.0-75.0) Lymphocytes (%) (Auto) 21.2 % (20.0-45.0) Monocytes (%) (Auto) 10.3 % (1.0-10.0) H Eosinophils (%) (Auto) 3.3 % (0.0-3.0) H Basophils (%) (Auto) 1.1 % (0.0-2.0) Prothrombin Time 10.2 SEC (9.30-11.50) Prothrombin Time INR 1.0 (0.9-1.1) PTT 25 SEC (23-33) Sodium Level 135 MMOL/L (136-145) L Potassium Level 3.3 MMOL/L (3.5-5.1) L Chloride Level 99 MMOL/L (98-107) Carbon Dioxide Level 23 MMOL/L (21-32) Anion Gap 13 mmol/L (5-15) Blood Urea Nitrogen 26 mg/dL (7-18) H Creatinine 1.6 MG/DL (0.55-1.30) H Estimate Glomerular Filtration Rate 39.5 mL/min (>60) Glucose Level 170 MG/DL (74-106) H Calcium Level 9.8 MG/DL (8.5-10.1) Total Bilirubin 0.5 MG/DL (0.2-1.0) Aspartate Amino Transferase (AST) 21 U/L (15-37) Alanine Aminotransferase (ALT) 37 U/L (12-78) Alkaline Phosphatase 122 U/L (46-116) H Troponin I 0.006 ng/mL (0.000-0.056) Total Protein 8.8 G/DL (6.4-8.2) H Albumin 4.2 G/DL (3.4-5.0) Globulin 4.6 g/dL Albumin/Globulin Ratio 0.9 (1.0-2.7) L Lipase 89 U/L (73-393) Urine Color Pale yellow Urine Appearance Clear Urine pH 5 (4.5-8.0) Urine Specific Sullivan 1.015 (1.005-1.035) Urine Protein Negative (NEGATIVE) Urine Glucose (UA) Negative (NEGATIVE) Urine Ketones Negative (NEGATIVE) Urine Occult Blood Negative (NEGATIVE) Urine Nitrite Negative (NEGATIVE) Urine Bilirubin Negative (NEGATIVE) Urine Urobilinogen Normal MG/DL (0.0-1.0) Urine Leukocyte Esterase 3+ (NEGATIVE) H Urine RBC 0-2 /HPF (0 - 2) Urine WBC 2-4 /HPF (0 - 2) Urine Squamous Epithelial Cells Few /LPF (NONE/OCC) Urine Bacteria Few /HPF (NONE) Other X-Ray Diagnostic Results Other X-Ray Diagnostic Results : X-Ray ordered: abd # of Views/Limited Vs Complete: 1 View Indication: Pain Interpretation: nonspecific bowel gas, no sbo Impression: No acute disease Electronically Signed by: Electronically signed by Roshan Paez MD Last Vital Signs Date Time Temp Pulse Resp B/P (MAP) Pulse Ox O2 Delivery O2 Flow Rate FiO2 05/05/17 20:40 97.7 92 18 124/73 100 Room Air Status: improved Disposition: HOME, SELF-CARE Condition: Improved Scripts Acetaminophen (Tylenol) 325 Mg Tablet 650 MG ORAL Q6H Y for Prn Pain/Headache/Temp > 101, #20 TAB 0 Refills Prov: Roshan Paez M.D. 05/05/17 Tramadol Hcl* (ULTRAM*) 50 Mg Tablet 50 MG ORAL Q6H Y for For Pain, #10 TAB 0 Refills Prov: Roshan Paez M.D. 05/05/17 Referrals: [facility],REFERRING (PCP) Roshan Paez M.D. May 05, 2017 23:17
[2017-05-05] MEDS ORDERED: TRAMADOL HCL50 MG ORAL (23:21)
[2017-05-05] MEDS ORDERED: TYLENOL325 MG ORAL (23:21)
[2017-05-05 23:31] VITALS: BP 118/71
[2017-05-05 23:32] VITALS: BP 118/71
--- NOTE | 2017-05-06 09:59 | Diagnostic Imaging Report ---
Indication: Pain Technique: XRAY Abdomen 1v Comparison: None Findings: Nonspecific bowel gas pattern with overall paucity of bowel gas. No evidence of suggest obstruction. No free intraperitoneal air however evaluation is limited on supine views. There is scoliosis and degenerative change of the lumbar spine. No acute osseous abnormality seen. Images lower lungs are clear. Impression: Nonspecific, nonobstructive bowel gas pattern.
== END 2017-05-05 23:32 | disposition home or self-care (01) ==
LOC: EDBD 19:51 → EMR 20:00
DX: R10.31 Right lower quadrant pain (principal); R19.7 Diarrhea, unspecified; E11.9 Type 2 diabetes mellitus without complications; N28.9 Disorder of kidney and ureter, unspecified; J44.9 Chronic obstructive pulmonary disease, unspecified; I10 Essential (primary) hypertension
CPT/HCPCS: 36415; 74018; 80053; 81003; 83690; 84484; 85025; 85610; 85730; 96361; 96374; 96375; 99284; J1885; J2405; S0028

== ENCOUNTER 2017-06-06 10:07 | Emergency (ER) | payer OTHER ==
[~2017-06-06] VITALS: Ht 165.1 cm; Wt 81.6 kg
[~2017-06-06 10:07] MED LIST changes: +TRAMADOL HCL50 MG ORAL; +TYLENOL325 MG ORAL
[2017-06-06] MEDS ORDERED: UNOBMED (10:22)
[2017-06-06 10:32] VITALS: BP 168/66
[2017-06-06 10:35] LABS: BASOPHILS % (AUTO) 0.8 % (0.0-2.0); EOSINOPHILS % (AUTO) 7.7 % (0.0-3.0); HEMATOCRIT 38.9 % (37.0-47.0); HEMOGLOBIN 13.5 G/DL (12.0-16.0); LYMPHOCYTES % (AUTO) 13.9 % (20.0-45.0); MEAN CORPUSCULAR VOLUME 93 FL (80-99); MONOCYTES % (AUTO) 5.8 % (1.0-10.0); NEUTROPHILS % (AUTO) 71.9 % (45.0-75.0); PLATELET COUNT 115 K/UL (150-450); RED BLOOD COUNT 4.18 M/UL (4.20-5.40); RED CELL DISTRIBUTION WIDTH 10.9 % (11.6-14.8)
[2017-06-06 10:38] LABS: APPEARANCE,URINE CLEAR; BILIRUBIN, URINE NEGATIVE (NEGATIVE); COLOR,URINE PALE YELLOW; GLUCOSE, URINE (UA) 1+ (NEGATIVE); KETONES,URINE NEGATIVE (NEGATIVE); LEUKOCYTE ESTERASE ,URINE 1+ (NEGATIVE); NITRITE,URINE NEGATIVE (NEGATIVE); PH,URINE 6 (4.5-8.0); PROTEIN,URINE NEGATIVE (NEGATIVE); UROBILINOGEN,URINE NORMAL MG/DL (0.0-1.0)
[2017-06-06 11:14] LABS: ALANINE AMINOTRANSFERASE 34 U/L (12-78); ALBUMIN 4.2 G/DL (3.4-5.0); ALKALINE PHOSPHATASE 128 U/L (46-116); ANION GAP 7 mmol/L (5-15); ASPARTATE AMINO TRANSFERASE 18 U/L (15-37); BILIRUBIN,TOTAL 0.4 MG/DL (0.2-1.0); BLOOD UREA NITROGEN 20 mg/dL (7-18); CALCIUM 9.7 MG/DL (8.5-10.1); CARBON DIOXIDE 26 MMOL/L (21-32); CHLORIDE 103 MMOL/L (98-107); CREATININE 0.9 MG/DL (0.55-1.30); POTASSIUM 3.7 MMOL/L (3.5-5.1); SODIUM 136 MMOL/L (136-145)
[2017-06-06] MEDS ORDERED: Ketorolac 30mg Inj IV ONE (11:15)
--- NOTE | 2017-06-06 11:35 | Emergency Room Report ---
History of Present Illness General Chief Complaint: Abdominal Pain Source: Patient, Medical Record, EMS Present Illness HPI 62-year-old female p/w abdominal pain for one week. Patient states pain started suddenly, localized to mid and right lower abdomen, non radiating, sharp in nature, intermittent. No relieving or exacerbating factors. Pt reports n/v, 2 episodes of nbnb vomiting, no diarrhea constipation or black or bloody stools Denies fever, chills. No hx of abdominal surgeries. No hx of endoscopies/colonoscopies. Patient has history of abdominal pain, last CT was performed 2015 Allergies: Coded Allergies: NO KNOWN DRUG ALLERGIES (Unverified Allergy, Unknown, 04/27/15) Patient History Past Medical History: see triage record Past Surgical History: none Pertinent Family History: none Reviewed Nursing Documentation: PMH: Agreed, PSxH: Agreed Nursing Documentation-PMH Hx Cardiac Problems: Yes Hx Hypertension: Yes Hx Pacemaker: No Hx Asthma: No Hx COPD: Yes Hx Diabetes: Yes Hx Cancer: No Hx Gastrointestinal Problems: Yes - Hepatitis C Hx Dialysis: Yes Hx Neurological Problems: No Hx Cerebrovascular Accident: No Hx Seizures: No Review of Systems All Other Systems: negative except mentioned in HPI Physical Exam Vital Signs Date Time Temp Pulse Resp B/P (MAP) Pulse Ox O2 Delivery O2 Flow Rate FiO2 06/06/17 10:07 98.1 100 18 200/94 100 Room Air 98.1 Sp02 EP Interpretation: reviewed, normal General Appearance: alert, GCS 15, moderate distress Head: normocephalic, atraumatic Eyes: bilateral eye normal inspection, bilateral eye PERRL, bilateral eye EOMI ENT: normal ENT inspection, normal pharynx, normal voice, moist mucus membranes Neck: normal inspection, full range of motion, supple Respiratory: normal inspection, lungs clear, normal breath sounds, no respiratory distress, no retraction, no wheezing, speaking full sentences, chest symmetrical Cardiovascular #1: normal inspection, regular rate, rhythm, no edema, normal capillary refill Cardiovascular #2: 2+ radial (R), 2+ radial (L) Gastrointestinal: other - Mid and right lower abdomen tenderness, no guarding no rigidity Musculoskeletal: normal inspection, back normal, normal range of motion, non- tender Neurologic: normal inspection, alert, oriented x3, responsive, motor strength/ tone normal, sensory intact, normal gait, speech normal Psychiatric: normal inspection, judgement/insight normal, memory normal Skin: normal inspection, normal color, no rash, warm/dry, well hydrated, normal turgor Medical Decision Making Diagnostic Impression: Primary Impression: Abdominal pain ER Course 62-year-old female with abdominal pain Differential Diagnosis: Gastritis, gastroenteritis, cholecystitis, appendicitis, diverticulitis, UTI/ pyelo Plan: Basic labs, ua, ekg Pepcid, maalox, pain control, IVF CT abdopelvis ER course: Patient has remained stable during ED stay. no findings on ct has been nad during stay Disposition: Patient is to be discharged to home. Patient is instructed to follow up with their primary care doctor within 5 days. Strict return precautions discussed with patient such as fever, chills, worsening/severe abdominal pain, nausea, vomiting, black or bloody stools, which may indicate severe illness. Patient verbalizes understanding and agrees with plan. Please note that this Emergency Department Report was dictated using [employer] specialist technology software, occasionally this can lead to erroneous entry secondary to interpretation by the dictation equipment EKG Diagnostic Results EP Interpretation: Yes Rate: normal Rhythm: NSR ST Segments: No acute changes ASA given to patient: No Rhythm Strip EP Interpretation: Yes Rate: 77 Rhythm: NSR, no PVCs, no ectopy CT/MRI/US Diagnostic Results CT/MRI/US Diagnostic Results : Imaging Test Ordered: CT abdo pelvis Impression CT ABDOMEN & PELVIS With Contrast: No bowel dilation, free air or free fluid Normal caliber appendix without secondary signs Ovaries appear unremarkable A couple of nonobstructing small left intrarenal stones again noted Symmetric nephrograms without hydronephrosis or perinephric stranding Abdominal solid organs and gallbladder appear within limits There is motion at the fundus of the gallbladder Last Vital Signs Date Time Temp Pulse Resp B/P (MAP) Pulse Ox O2 Delivery O2 Flow Rate FiO2 06/06/17 11:17 98.1 06/06/17 10:32 79 18 168/66 100 Room Air Disposition: HOME, SELF-CARE Condition: Improved Scripts Famotidine (PEPCID) 40 Mg Tablet 40 MG PO DAILY, #14 TAB 0 Refills Prov: Gael Matos M.D. 06/06/17 Patient Instructions: Abdominal Pain, Adult Gael Matos M.D. Jun 06, 2017 11:35
[2017-06-06 12:56] VITALS: BP 113/65
[2017-06-06] MEDS ORDERED: PEPCID40 MG PO (13:31)
[2017-06-06 13:45] VITALS: BP 113/65
--- NOTE | 2017-06-07 08:36 | Diagnostic Imaging Report ---
Clinical Indication: Abdominal pain Technique: No oral contrast utilized, per emergency room physician request IV administration nonionic contrast. Venous phase spiral acquisition obtained through the abdomen and pelvis. Multiplanar reconstructions were generated. Total dose length product 495.34 mGycm. CTDIvol(s) 10.51 mGy. Dose reduction achieved using automated exposure control Comparison: 04/27/2015 Findings: There is slight image degradation due to patient motion artifact. Lack of oral contrast limits assessment of the GI tract. The appendix is normal. There are a few sigmoid diverticula. No evidence of diverticulitis. There is mild sigmoid wall thickening, probably represents circular muscle hypertrophy. This is similar to the previous study. No small bowel distention. No free or loculated intraperitoneal air or fluid is evident. The liver, gallbladder, bile ducts, pancreas, spleen, adrenals, right kidney are unremarkable. The left kidney again demonstrates 2 nonobstructive calyceal calculi, largest in the interpolar region measuring 3 mm in diameter. No focal parenchymal abnormality. No pelvic mass or adenopathy. No retroperitoneal or mesenteric mass or adenopathy. The included lung bases demonstrate minimal posterior dependent atelectatic changes. The bones demonstrate degenerative spondylosis changes. Impression: No definite acute abnormality Diverticulosis. Sigmoid wall thickening likely secondary to circular muscle hypertrophy related to the diverticulosis, sigmoid colitis not completely excludable and correlation with clinical findings is recommended Nonobstructive left renal calculi, also previously demonstrated This agrees with the preliminary interpretation provided overnight by [facility] teleradiology service. The CT scanner at [facility] is accredited by the [employer] and the scans are performed using protocols designed to limit radiation exposure to as low as reasonably achievable to attain images of sufficient resolution adequate for diagnostic evaluation.
--- NOTE | 2017-06-08 20:00 | Cardiology Report ---
APPROVED REPORT EKG Measurement Heart [id number] Normal sinus rhythm Possible Left atrial enlargement Borderline ECG
== END 2017-06-06 13:57 | disposition home or self-care (01) ==
LOC: EDBD 10:07 → EMR 10:19
DX: R10.31 Right lower quadrant pain (principal); I10 Essential (primary) hypertension; B19.20 Unspecified viral hepatitis C without hepatic coma; K57.30 Diverticulosis of large intestine without perforation or abscess without bleeding; N20.0 Calculus of kidney
CPT/HCPCS: 36415; 74177; 80053; 81003; 83605; 83690; 85025; 93005; 96374; 96375; 99284; J1885; J2405; Q9967; S0028

== ENCOUNTER 2017-08-07 00:32 | Emergency (ER) | payer OTHER ==
[~2017-08-07] VITALS: Ht 167.6 cm; Wt 61.2 kg
[~2017-08-07 00:32] MED LIST changes: +PEPCID40 MG PO; +UNOBMED
[2017-08-07] MEDS ORDERED: Lidocaine 2% Visc 15ml soln ORAL ONE (01:30)
[2017-08-07] MEDS ORDERED: Dicyclomine HCl 10mg/5ml oral soln ORAL ONE (01:30)
[2017-08-07] MEDS ORDERED: Loperamide 2mg cap ORAL ONE (01:30)
[2017-08-07] MEDS ORDERED: Mylanta II UD 30ml ORAL ONE (01:30)
[2017-08-07 01:46] LABS: BASOPHILS % (AUTO) 0.7 % (0.0-2.0); EOSINOPHILS % (AUTO) 1.1 % (0.0-3.0); HEMATOCRIT 43.2 % (37.0-47.0); HEMOGLOBIN 15.9 G/DL (12.0-16.0); LYMPHOCYTES % (AUTO) 24.2 % (20.0-45.0); MEAN CORPUSCULAR VOLUME 93 FL (80-99); MONOCYTES % (AUTO) 6.6 % (1.0-10.0); NEUTROPHILS % (AUTO) 67.3 % (45.0-75.0); PLATELET COUNT 125 K/UL (150-450); RED BLOOD COUNT 4.65 M/UL (4.20-5.40); WHITE BLOOD COUNT 10.5 K/UL (4.8-10.8)
[2017-08-07 01:58] LABS: ANION GAP 14 mmol/L (5-15); BLOOD UREA NITROGEN 14 mg/dL (7-18); CALCIUM 10.3 MG/DL (8.5-10.1); CARBON DIOXIDE 26 MMOL/L (21-32); CHLORIDE 99 MMOL/L (98-107); POTASSIUM 3.6 MMOL/L (3.5-5.1); SODIUM 138 MMOL/L (136-145)
[2017-08-07 02:03] LABS: ALANINE AMINOTRANSFERASE 43 U/L (12-78); ALBUMIN 4.4 G/DL (3.4-5.0); ALBUMIN/GLOBULIN RATIO 0.8 (1.0-2.7); ALKALINE PHOSPHATASE 190 U/L (46-116); ASPARTATE AMINO TRANSFERASE 27 U/L (15-37); BILIRUBIN,TOTAL 0.6 MG/DL (0.2-1.0)
[2017-08-07 02:13] VITALS: BP 122/90
[2017-08-07] MEDS ORDERED: IMODIUM2 MG ORAL (03:14)
[2017-08-07] MEDS ORDERED: ZOFRAN4 M3 ORAL (03:14)
[2017-08-07] MEDS ORDERED: DICYCLOMINE HCL10 MG PO (03:14)
[2017-08-07 03:20] VITALS: BP 161/81
[2017-08-07 03:25] VITALS: BP 122/90
--- NOTE | 2017-08-07 06:18 | Emergency Room Report ---
History of Present Illness General Chief Complaint: Nausea Source: EMS Present Illness HPI Patient is a 62-year-old female who presented after increased nausea and vomiting. Patient was having increased diarrheal stools. Patient reports having watery diarrhea. She reports having crampy abdominal pain. The patient prior history of diabetes. She denies any fever. She denies any black or bloody stools. She denies bad food exposure. Allergies: Coded Allergies: NO KNOWN DRUG ALLERGIES (Unverified Allergy, Unknown, 04/27/15) Patient History Reviewed Nursing Documentation: PMH: Agreed; PSxH: Agreed Nursing Documentation-PMH Past Medical History: No History, Except For Hx Cardiac Problems: Yes Hx Hypertension: Yes Hx Pacemaker: No Hx Asthma: No Hx COPD: Yes Hx Diabetes: Yes Hx Cancer: No Hx Gastrointestinal Problems: Yes - Hepatitis C Hx Dialysis: Yes Hx Neurological Problems: No Hx Cerebrovascular Accident: No Hx Seizures: No Review of Systems All Other Systems: negative except mentioned in HPI Physical Exam Vital Signs Date Time Temp Pulse Resp B/P (MAP) Pulse Ox O2 Delivery O2 Flow Rate FiO2 08/07/17 00:38 98.4 74 16 174/104 98 Room Air 98.4 Sp02 EP Interpretation: reviewed, normal General Appearance: normal inspection, well appearing, no apparent distress, alert, GCS 15, Chronically Ill Head: atraumatic ENT: normal ENT inspection, hearing grossly normal, normal voice Neck: normal inspection, full range of motion, supple, no bony tend Respiratory: normal inspection, lungs clear, normal breath sounds, no respiratory distress, no retraction, no wheezing Cardiovascular #1: regular rate, rhythm, no edema Gastrointestinal: normal inspection, normal bowel sounds, non tender, soft, no guarding, no hernia Genitourinary: no CVA tenderness Musculoskeletal: normal inspection, back normal, normal range of motion Neurologic: normal inspection, alert, oriented x3, responsive, nurse orthopaedic III-XII nml as tested, speech normal Psychiatric: normal inspection, judgement/insight normal, mood/affect normal Skin: normal inspection, normal color, no rash Medical Decision Making Diagnostic Impression: Primary Impression: Gastroenteritis and colitis, viral ER Course Patient presented for abdominal pain. Differential diagnoses included ischemic bowel, appendicitis, perforated viscus, abdominal aortic aneurysm, inferior myocardial infarction, viral gastroenteritis. Because of complexity of patient' s case laboratory testing and imaging studies were ordered.The patient's laboratory testing was unremarkable. The patient was given IV antiemetics as well as antidiarrheal medication with improvement in her symptoms. The patient is advised to return if she began having persistent vomiting lightheadedness or other concerns. Patient was advised follow-up with her primary care physician in one to 2 days for reexamination. Labs Test 08/07/17 01:20 White Blood Count 10.5 K/UL (4.8-10.8) Red Blood Count 4.65 M/UL (4.20-5.40) Hemoglobin 15.9 G/DL (12.0-16.0) Hematocrit 43.2 % (37.0-47.0) Mean Corpuscular Volume 93 FL (80-99) Mean Corpuscular Hemoglobin 34.1 PG (27.0-31.0) Mean Corpuscular Hemoglobin Concent 36.7 G/DL (32.0-36.0) Red Cell Distribution Width 11.0 % (11.6-14.8) Platelet Count 125 K/UL (150-450) Mean Platelet Volume 6.0 FL (6.5-10.1) Neutrophils (%) (Auto) 67.3 % (45.0-75.0) Lymphocytes (%) (Auto) 24.2 % (20.0-45.0) Monocytes (%) (Auto) 6.6 % (1.0-10.0) Eosinophils (%) (Auto) 1.1 % (0.0-3.0) Basophils (%) (Auto) 0.7 % (0.0-2.0) Sodium Level 138 MMOL/L (136-145) Potassium Level 3.6 MMOL/L (3.5-5.1) Chloride Level 99 MMOL/L (98-107) Carbon Dioxide Level 26 MMOL/L (21-32) Anion Gap 14 mmol/L (5-15) Blood Urea Nitrogen 14 mg/dL (7-18) Creatinine 1.0 MG/DL (0.55-1.30) Estimat Glomerular Filtration Rate > 60 mL/min (>60) Glucose Level 161 MG/DL (74-106) Calcium Level 10.3 MG/DL (8.5-10.1) Total Bilirubin 0.6 MG/DL (0.2-1.0) Aspartate Amino Transf (AST/SGOT) 27 U/L (15-37) Alanine Aminotransferase (ALT/SGPT) 43 U/L (12-78) Alkaline Phosphatase 190 U/L (46-116) Troponin I 0.017 ng/mL (0.000-0.056) Total Protein 9.7 G/DL (6.4-8.2) Albumin 4.4 G/DL (3.4-5.0) Globulin 5.3 g/dL Albumin/Globulin Ratio 0.8 (1.0-2.7) Lipase 65 U/L (73-393) Last Vital Signs Date Time Temp Pulse Resp B/P (MAP) Pulse Ox O2 Delivery O2 Flow Rate FiO2 08/07/17 03:25 98.9 82 14 122/90 100 Room Air 98.9 Status: improved Disposition: HOME, SELF-CARE Condition: Stable Scripts Loperamide HCl (Loperamide) 2 Mg Capsule 2 MG ORAL Q4H, #20 CAP 0 Refills Prov: Franklin Uriarte 08/07/17 Dicyclomine Hcl* (DICYCLOMINE HCL*) 10 Mg Capsule 10 MG PO QID, #30 CAP Prov: Franklin Uriarte 08/07/17 Ondansetron* (ZOFRAN*) 4 Mg Tablet 4 MG ORAL Q6H PRN for Nausea & Vomiting, #30 TAB Prov: Franklin Uriarte 08/07/17 Patient Instructions: Nausea and Vomiting, Adult Franklin Uriarte August 07, 2017 06:18
--- NOTE | 2017-08-08 11:50 | Cardiology Report ---
APPROVED REPORT EKG Measurement Heart [id number] Normal sinus rhythm with sinus arrhythmia Possible Left atrial enlargement Borderline ECG
== END 2017-08-07 03:25 | disposition home or self-care (01) ==
LOC: EDUNIT# 00:32 → EDBD 00:32 → EMR 01:55
DX: A08.4 Viral intestinal infection, unspecified (principal); I10 Essential (primary) hypertension; J44.9 Chronic obstructive pulmonary disease, unspecified; E11.9 Type 2 diabetes mellitus without complications; B19.20 Unspecified viral hepatitis C without hepatic coma
CPT/HCPCS: 36415; 80053; 82962; 83690; 84484; 85025; 93005; 96360; 96374; 99284; J2405

== ENCOUNTER 2018-05-11 09:29 | Emergency (ER) | payer OTHER ==
[~2018-05-11] VITALS: Ht 167.6 cm; Wt 56.7 kg
[2018-05-11 09:17] VITALS: BP 136/86
[~2018-05-11 09:29] MED LIST changes: +DICYCLOMINE HCL10 MG PO; +IMODIUM2 MG ORAL; +ZOFRAN4 M3 ORAL
--- NOTE | 2018-05-11 09:29 | NUR ---
ED Nurse Note: pt. brought in by ambulance due R leg pain X 1 week. denies any recent trauma or injury
[2018-05-11] MEDS ORDERED: Morphine Sulfate 4mg/ml Inj (IV/IM USE ONLY) IVP ONE (09:30)
[2018-05-11] MEDS ORDERED: Morphine Sulfate 2mg/ml Inj ONE (09:54)
[2018-05-11] MEDS ORDERED: Morphine Sulfate 4mg/ml Inj (IV/IM USE ONLY) ONE (10:04)
[2018-05-11 10:07] LABS: APPEARANCE,URINE SLIGHTLY CLOUDY; BILIRUBIN, URINE NEGATIVE (NEGATIVE); COLOR,URINE PALE YELLOW; GLUCOSE, URINE (UA) NEGATIVE (NEGATIVE); KETONES,URINE NEGATIVE (NEGATIVE); LEUKOCYTE ESTERASE ,URINE 3+ (NEGATIVE); NITRITE,URINE NEGATIVE (NEGATIVE); PH,URINE 5 (4.5-8.0); PROTEIN,URINE NEGATIVE (NEGATIVE); UROBILINOGEN,URINE NORMAL MG/DL (0.0-1.0)
[2018-05-11 10:09] LABS: BASOPHILS % (AUTO) 0.5 % (0.0-2.0); HEMATOCRIT 50.8 % (37.0-47.0); HEMOGLOBIN 17.2 G/DL (12.0-16.0); LYMPHOCYTES % (AUTO) 13.9 % (20.0-45.0); MEAN CORPUSCULAR VOLUME 96 FL (80-99); NEUTROPHILS % (AUTO) 77.6 % (45.0-75.0); PLATELET COUNT 217 K/UL (150-450); RED BLOOD COUNT 5.31 M/UL (4.20-5.40); RED CELL DISTRIBUTION WIDTH 11.3 % (11.6-14.8); WHITE BLOOD COUNT 14.8 K/UL (4.8-10.8)
--- NOTE | 2018-05-11 11:04 | Diagnostic Imaging Report ---
Indication: Dyspnea Comparison: 05/11/2014 A single view chest radiograph was obtained. Findings: Cardiomediastinal appearance is within normal limits for age. The lungs are clear. Pulmonary vascularity is appropriate. The diaphragmatic contour is smooth and costophrenic angles are sharp. No pleural effusions are identified. The bones are unremarkable. Impression: No acute findings
[2018-05-11] MEDS ORDERED: cefTRIAXone 1 GM in NS 55 ML IVPB ONE (11:15)
[2018-05-11 11:26] LABS: ANION GAP 23 mmol/L (5-15); BLOOD UREA NITROGEN 43 mg/dL (7-18); CALCIUM 9.1 MG/DL (8.5-10.1); CARBON DIOXIDE 14 MMOL/L (21-32); CHLORIDE 97 MMOL/L (98-107); CREATININE 2.9 MG/DL (0.55-1.30); SODIUM 134 MMOL/L (136-145)
[2018-05-11 11:30] LABS: ALANINE AMINOTRANSFERASE 36 U/L (12-78); ALBUMIN 4.9 G/DL (3.4-5.0); ALBUMIN/GLOBULIN RATIO 0.9 (1.0-2.7); ALKALINE PHOSPHATASE 142 U/L (46-116); ASPARTATE AMINO TRANSFERASE 30 U/L (15-37); BILIRUBIN,TOTAL 0.4 MG/DL (0.2-1.0)
--- NOTE | 2018-05-11 12:53 | Emergency Room Report ---
History of Present Illness General Chief Complaint: Pain Source: Patient, EMS Present Illness HPI 63-year-old female came in by EMS for generalized weakness, "I feel sick". She is complaining of just not feeling well, fevers, chills She otherwise denies chest pain, shortness of breath, abdominal pain, urinary complaints, headache Has history of diabetes states she's been compliant with her medication Allergies: Coded Allergies: NO KNOWN DRUG ALLERGIES (Unverified Allergy, Unknown, 04/27/15) Patient History Past Medical History: DM Past Surgical History: none Pertinent Family History: none Social History: Denies: smoking, alcohol use, drug use Now: No Immunizations: UTD Reviewed Nursing Documentation: PMH: Agreed; PSxH: Agreed Nursing Documentation-PMH Past Medical History: No History, Except For Hx Cardiac Problems: Yes Hx Hypertension: Yes Hx Pacemaker: No Hx Asthma: No Hx COPD: Yes Hx Diabetes: Yes Hx Cancer: No Hx Gastrointestinal Problems: Yes - Hepatitis C Hx Dialysis: Yes Hx Neurological Problems: No Hx Cerebrovascular Accident: Yes Hx Seizures: No Review of Systems All Other Systems: negative except mentioned in HPI Physical Exam Vital Signs Date Time Temp Pulse Resp B/P (MAP) Pulse Ox O2 Delivery O2 Flow Rate FiO2 05/11/18 09:17 98.4 05/11/18 09:17 110 20 136/86 97 Room Air Sp02 EP Interpretation: reviewed, normal General Appearance: normal inspection, well appearing, no apparent distress, alert, GCS 15, non-toxic, thin Head: normocephalic, atraumatic Eyes: bilateral eye PERRL, bilateral eye EOMI ENT: normal ENT inspection, hearing grossly normal, normal pharynx, no angioedema, normal voice, TMs + canals normal, uvula midline, moist mucus membranes Neck: normal inspection, full range of motion, supple, thyroid normal, no meningismus, no bony tend Respiratory: normal inspection, lungs clear, normal breath sounds, no rhonchi, no respiratory distress, no retraction, no accessory muscle use, no wheezing, speaking full sentences Cardiovascular #1: regular rate, rhythm, no edema, no JVD, normal capillary refill Gastrointestinal: normal inspection, normal bowel sounds, non tender, soft, no mass, no peritonitis, non-distended, no guarding, no hernia, no pulsatile mass Genitourinary: no CVA tenderness Musculoskeletal: normal inspection, back normal, normal range of motion, no calf tenderness, pelvis stable, Rafael's Sign negative Neurologic: normal inspection, alert, oriented x3, responsive, volunteer services supervisor III-XII nml as tested, motor strength/tone normal, cerebellar normal, normal gait, speech normal Psychiatric: normal inspection, judgement/insight normal, mood/affect normal, no suicidal/homicidal ideation, no delusions Skin: normal inspection, normal color, no rash Lymphatic: normal inspection, no adenopathy Medical Decision Making ER Course VS with tachycardia Looks thin, cachextic 20 care glucoses within normal limits On CMP glucose also normal and serum ketones are negative, so unlikely DKA UA grossly infected Serum creatinine elevated no previous to compare Patient with multiple diagnoses including acute kidney failure, dehydration and urinary tract infection Was given antibiotics, 2 L of normal saline in the ER Is capitated for transfer to [facility] Endorsed to Dr Baptiste for transfer at 1pm EKG Diagnostic Results Rate: normal Rhythm: NSR ST Segments: no acute changes ASA given to the pt in ED: No Last Vital Signs Date Time Temp Pulse Resp B/P (MAP) Pulse Ox O2 Delivery O2 Flow Rate FiO2 05/11/18 09:17 98.4 110 20 136/86 97 Room Air Status: improved Disposition: ADMITTED INPATIENT Condition: Stable Referrals: [facility],REFERRING (PCP) RAFAEL LOYA M.D. May 11, 2018 12:53
[2018-05-11 13:06] VITALS: BP 151/80
--- NOTE | 2018-05-11 13:30 | NUR ---
ED Nurse Note: Gave report to FARHAT Liz
[2018-05-11] MEDS ORDERED: Norco 5mg/325mg tab ORAL ONE (14:15)
[2018-05-11 14:30] VITALS: BP 143/75
--- NOTE | 2018-05-13 23:39 | Cardiology Report ---
APPROVED REPORT EKG Measurement Heart [id number] Normal sinus rhythm Normal ECG
== END 2018-05-11 14:30 | disposition home or self-care (01) ==
LOC: EDBD 09:29 → EMR 09:55
DX: N17.9 Acute kidney failure, unspecified (principal); E86.0 Dehydration; N39.0 Urinary tract infection, site not specified; R64 Cachexia; E11.9 Type 2 diabetes mellitus without complications; I10 Essential (primary) hypertension; B19.20 Unspecified viral hepatitis C without hepatic coma; Z86.73 Personal history of transient ischemic attack (TIA), and cerebral infarction without residual deficits; J44.9 Chronic obstructive pulmonary disease, unspecified
CPT/HCPCS: 36415; 71045; 80053; 81003; 82009; 83690; 83735; 85025; 87086; 93005; 96361; 96365; 96375; 99285; J0696; J2270; J2405

== ENCOUNTER 2018-07-01 18:23 | Emergency (ER) | payer OTHER ==
[~2018-07-01] VITALS: Ht 162.6 cm; Wt 49.9 kg
--- NOTE | 2018-07-01 18:36 | NUR ---
ED Nurse Note: PT BROUGHT IN BY [facility] FROM HOME. AOX4. PT C/O LOWER ABDOMINAL PAIN, 10/ X 1 WEEK AGO. PT ALSO STATES SHE HAS NAUSEA BUT DENIES VOMITING AND STATES SHE HAS HAD ONE EPISODE OF DIARRHEA X THIS AM. ACTIVE BOWEL SOUNDS IN ALL QUADRANTS. ABDOMEN NONDISTENDED AND NONTENDER TO PALPATION.
[2018-07-01 18:37] VITALS: BP 134/69
[2018-07-01] MEDS ORDERED: Dicyclomine HCl 10mg/5ml oral soln ORAL ONE (19:00)
[2018-07-01] MEDS ORDERED: Lidocaine 2% Visc 15ml soln ORAL ONE (19:00)
[2018-07-01] MEDS ORDERED: Mylanta II UD 30ml ORAL ONE (19:00)
--- NOTE | 2018-07-01 19:14 | NUR ---
ED Nurse Note: REPORT GIVEN TO FARHAT PERRY.
[2018-07-01 19:15] LABS: HEMATOCRIT 36.9 % (37.0-47.0); HEMOGLOBIN 13.1 G/DL (12.0-16.0); MEAN CORPUSCULAR VOLUME 91 FL (80-99); PLATELET COUNT 180 K/UL (150-450); RED BLOOD COUNT 4.06 M/UL (4.20-5.40); RED CELL DISTRIBUTION WIDTH 11.2 % (11.6-14.8); WHITE BLOOD COUNT 18.4 K/UL (4.8-10.8)
[2018-07-01 19:17] LABS: BASOPHILS % (AUTO) 1.8 % (0.0-2.0); EOSINOPHILS % (AUTO) 0.8 % (0.0-3.0); LYMPHOCYTES % (AUTO) 8.8 % (20.0-45.0); MONOCYTES % (AUTO) 12.2 % (1.0-10.0); NEUTROPHILS % (AUTO) 76.4 % (45.0-75.0)
[2018-07-01 19:26] LABS: ANION GAP 20 mmol/L (5-15); BLOOD UREA NITROGEN 64 mg/dL (7-18); CALCIUM 9.7 MG/DL (8.5-10.1); CARBON DIOXIDE 15 MMOL/L (21-32); CHLORIDE 97 MMOL/L (98-107); CREATININE 2.1 MG/DL (0.55-1.30); POTASSIUM 2.9 MMOL/L (3.5-5.1); SODIUM 131 MMOL/L (136-145)
--- NOTE | 2018-07-01 19:27 | Emergency Room Report ---
History of Present Illness General Chief Complaint: Flu Like Symptoms Source: Patient, Medical Record Present Illness HPI 63-year-old female presents ED for evaluation. Patient brought in by EMS for flulike symptoms. States she's been having cramping abdominal pain, diarrhea, vomiting times one week. Pain is cramping, 7 out of 10, nonradiating. States she feels weak. Denies chest pain or shortness of breath. Denies sick contacts or recent travel. Denies recent antibiotics use. States she did not receive flu shot. No other aggravating relieving factors. Denies any other associated symptoms Allergies: Coded Allergies: NO KNOWN DRUG ALLERGIES (Unverified Allergy, Unknown, 04/27/15) Patient History Past Medical History: DM, HTN, COPD, CVA/TIA, other - Hep C Past Surgical History: none Pertinent Family History: none Social History: Denies: smoking, alcohol use, drug use Now: No Immunizations: UTD Reviewed Nursing Documentation: PMH: Agreed; PSxH: Agreed Nursing Documentation-PMH Past Medical History: No History, Except For Hx Cardiac Problems: Yes Hx Hypertension: Yes Hx Pacemaker: No Hx Asthma: No Hx COPD: Yes Hx Diabetes: Yes Hx Cancer: No Hx Gastrointestinal Problems: Yes - Hepatitis C Hx Dialysis: Yes Hx Neurological Problems: No Hx Cerebrovascular Accident: Yes Hx Seizures: No Review of Systems All Other Systems: negative except mentioned in HPI Physical Exam Vital Signs Date Time Temp Pulse Resp B/P (MAP) Pulse Ox O2 Delivery O2 Flow Rate FiO2 07/01/18 18:26 97.3 102 16 107/63 97 Room Air Sp02 EP Interpretation: reviewed, normal General Appearance: no apparent distress, alert, GCS 15, non-toxic Head: normocephalic, atraumatic Eyes: bilateral eye normal inspection, bilateral eye PERRL ENT: hearing grossly normal, normal pharynx, no angioedema, normal voice Neck: full range of motion, supple/symm/no masses Respiratory: chest non-tender, lungs clear, normal breath sounds, speaking full sentences Cardiovascular #1: regular rate, rhythm, no edema Cardiovascular #2: 2+ carotid (R), 2+ carotid (L), 2+ radial (R), 2+ radial (L) , 2+ dorsalis pedis (R), 2+ dorsalis pedis (L) Gastrointestinal: normal bowel sounds, non tender, soft, non-distended, no guarding, no rebound Rectal: deferred Genitourinary: normal inspection, no CVA tenderness Musculoskeletal: back normal, gait/station normal, normal range of motion, non- tender Neurologic: alert, oriented x3, responsive, motor strength/tone normal, sensory intact, speech normal Psychiatric: judgement/insight normal, memory normal, mood/affect normal, no suicidal/homicidal ideation Reflexes: 3+ bicep (R), 3+ bicep (L), 3+ tricep (R), 3+ tricep (L), 3+ knee (R) , 3+ knee (L) Skin: normal color, no rash, warm/dry, well hydrated Lymphatic: no adenopathy Medical Decision Making Diagnostic Impression: Primary Impression: Colitis Additional Impressions: Dehydration Hypokalemia ER Course Hospital Course 63-year-old female presents ED with abdominal pain, vomiting and diarrhea Clinical course Pharyngealgastritis, gastroenteritis, dehydration Patient placed on stretcher. After initial history physical exam reveals an elderly female in no acute distress. Abdomen soft. No guarding or rebound. I ordered labs, IV fluids, Zantac, Zofran, GI cocktail Labs - leukocytosis noted, Hb/Hct stable. K 2.9, BUN/Cr elevated EKG - NSR, no acute ischemic changes interpreted by me Potassium repleted via IV fluids. Given continued IV hydration. Given Cipro/ Flagyl. Because of insurance patient will be transferred I feel this is a highly complex case requiring extensive working including EKG/ Rhythm strip, Xray/CT/US, Blood/urine lab work, repeat exams while in ED, and administration of strong opiates/narcotics for pain control, admission to hospital or close patient follow up. Diagnosis - colitis, dehydration, hypokalemia transferred in serious condition Labs Test 07/01/18 19:00 07/01/18 21:00 White Blood Count 18.4 K/UL (4.8-10.8) Red Blood Count 4.06 M/UL (4.20-5.40) Hemoglobin 13.1 G/DL (12.0-16.0) Hematocrit 36.9 % (37.0-47.0) Mean Corpuscular Volume 91 FL (80-99) Mean Corpuscular Hemoglobin 32.4 PG (27.0-31.0) Mean Corpuscular Hemoglobin Concent 35.6 G/DL (32.0-36.0) Red Cell Distribution Width 11.2 % (11.6-14.8) Platelet Count 180 K/UL (150-450) Mean Platelet Volume 5.3 FL (6.5-10.1) Neutrophils (%) (Auto) 76.4 % (45.0-75.0) Lymphocytes (%) (Auto) 8.8 % (20.0-45.0) Monocytes (%) (Auto) 12.2 % (1.0-10.0) Eosinophils (%) (Auto) 0.8 % (0.0-3.0) Basophils (%) (Auto) 1.8 % (0.0-2.0) Sodium Level 131 MMOL/L (136-145) Potassium Level 2.9 MMOL/L (3.5-5.1) Chloride Level 97 MMOL/L (98-107) Carbon Dioxide Level 15 MMOL/L (21-32) Anion Gap 20 mmol/L (5-15) Blood Urea Nitrogen 64 mg/dL (7-18) Creatinine 2.1 MG/DL (0.55-1.30) Estimat Glomerular Filtration Rate 28.7 mL/min (>60) Glucose Level 184 MG/DL (74-106) Calcium Level 9.7 MG/DL (8.5-10.1) Total Bilirubin 0.5 MG/DL (0.2-1.0) Aspartate Amino Transf (AST/SGOT) 13 U/L (15-37) Alanine Aminotransferase (ALT/SGPT) 18 U/L (12-78) Alkaline Phosphatase 100 U/L (46-116) Total Protein 8.3 G/DL (6.4-8.2) Albumin 3.8 G/DL (3.4-5.0) Globulin 4.5 g/dL Albumin/Globulin Ratio 0.8 (1.0-2.7) Lipase 130 U/L (73-393) EKG Diagnostic Results Rate: normal Rhythm: NSR ST Segments: no acute changes ASA given to the pt in ED: No Rhythm Strip Diag. Results EP Interpretation: yes Rhythm: NSR, no PVC's, no ectopy Last Vital Signs Date Time Temp Pulse Resp B/P (MAP) Pulse Ox O2 Delivery O2 Flow Rate FiO2 329/19 18:37 97.7 89 18 134/69 100 Room Air Status: improved Disposition: XFER SHT-TRM HOSP Condition: Serious Connor Curtis MD Jul 01, 2018 19:27
--- NOTE | 2018-07-01 19:30 | NUR ---
ED Nurse Note: Patient resting comfortably, no s/s of acute distress. ppatietn has complaints of being cold, extra blankets given.
[2018-07-01 19:33] LABS: ALANINE AMINOTRANSFERASE 18 U/L (12-78); ALBUMIN 3.8 G/DL (3.4-5.0); ALBUMIN/GLOBULIN RATIO 0.8 (1.0-2.7); ALKALINE PHOSPHATASE 100 U/L (46-116); ASPARTATE AMINO TRANSFERASE 13 U/L (15-37); BILIRUBIN,TOTAL 0.5 MG/DL (0.2-1.0)
[2018-07-01] MEDS ORDERED: NS w/KCl 40mEq 1,000 ML IV SCH (19:45)
--- NOTE | 2018-07-01 20:06 | NUR ---
Status upgraded to Tele per (K-2.9)
--- NOTE | 2018-07-01 20:30 | NUR ---
ED Nurse Note: Patient resting, tolerating medication well.
--- NOTE | 2018-07-01 21:30 | NUR ---
ED Nurse Note: Patient has complaints of stomach pain, ERMd informed.
[2018-07-01] MEDS ORDERED: Morphine Sulfate 4mg/ml Inj (IV USE ONLY) IVP ONE (22:00)
--- NOTE | 2018-07-01 22:15 | NUR ---
ED Nurse Note: Patient tolerated medication well, no s/s of acute distress, vital signs stable, pain levle decreased to 0.
--- NOTE | 2018-07-01 23:20 | NUR ---
ED Nurse Note: Patient tolerating potassium fluid well no complaints of buring at the site.
--- NOTE | 2018-07-02 00:35 | NUR ---
ED Nurse Note: ALS here for fern picker patient vital signs stabl patient A&Ox4, report rendered to ALS unit RN.
[2018-07-02 00:58] VITALS: BP 134/69
--- NOTE | 2018-07-02 00:58 | NUR ---
ED Nurse Note: REport called in to [facility] at [facility]. Patient being transferred at this time. All belongings accompanied patient upon departure. 40Meq of potassium stopped at this time.
--- NOTE | 2018-07-04 12:50 | Cardiology Report ---
APPROVED REPORT EKG Measurement Heart [id number] Normal sinus rhythm Normal ECG
== END 2018-07-02 00:58 | disposition short-term general hospital (02) ==
LOC: EDBD 18:23 → EMR 18:41 → EDBEDREQSVC 20:06 → EMR 07-02 00:58
DX: K52.9 Noninfective gastroenteritis and colitis, unspecified (principal); E86.0 Dehydration; E87.6 Hypokalemia; I10 Essential (primary) hypertension; E11.9 Type 2 diabetes mellitus without complications; J45.909 Unspecified asthma, uncomplicated; Z86.73 Personal history of transient ischemic attack (TIA), and cerebral infarction without residual deficits
CPT/HCPCS: 36415; 80053; 83605; 83690; 85025; 86710; 87040; 93005; 96361; 96365; 96368; 96375; 99285; J0744; J2270; J2405; S0028